=== PATIENT | male | born 1960 | race American Indian/Alaskan Native ===

== ENCOUNTER 2019-05-27 21:07 | Emergency (ER) | payer BC ==
--- NOTE | 2019-05-27 21:21 | Emergency Department Report ---
Blank Doc - Documentation Documentation: This is a 59-year-old male that presents with lower back pain. Stated felt a popping sensation This initial assessment/diagnostic orders/clinical plan/treatment(s) is/are subject to change based on patient's health status, clinical progression and re- assessment by fellow clinical providers in the ED. Further treatment and workup at subsequent clinical providers discretion. Patient/guardians urged not to elope from the ED as their condition may be serious if not clinically assessed and managed. Initial orders include: 1- Patient sent to [facility] for further evaluation and treatment 2- xray
[2019-05-27 21:23] VITALS: BP 135/92
--- NOTE | 2019-05-27 22:17 | XRay Report ---
LUMBAR SPINE 3 VIEWS. INDICATION / CLINICAL INFORMATION: low back pain COMPARISON: None available. FINDINGS: BONES / JOINT(S): No acute fracture or subluxation. Mild degenerative disc disease is scattered diffu sely. SOFT TISSUES: No significant abnormality. ADDITIONAL FINDINGS: None. Signer Name: Ryan Garcia MD Signed: 05/27/2019 10:12 PM Workstation Name: [id number]
[2019-05-27] MEDS ORDERED: PERCOCET 5/325 PO STA (22:34)
--- NOTE | 2019-05-27 23:01 | Emergency Department Report ---
ED Back Pain/Injury HPI - General Chief Complaint: Back Pain/Injury Stated Complaint: BACK PAIN Time Seen by Provider: 05/27/19 21:19 Source: patient Limitations: No Limitations - History of Present Illness Initial Comments: 59-year-old obese -[place] male was doing an excessive amount of yardwork, which is out of character for his usual workday about 2-3 days ago. Stated he began having some soreness to the right aspect of the back which has progressively worsening since the onset, now is aggravating him to the point where he attempted to go to the chiropractor earlier today but had no reduction in his discomfort. Pain is dull, throbbing and worse with various position, and range of motion. No numbness, tingling, no shortness of breath, coughing, dysuria, abdominal pain that diarrhea or constipation. MD Complaint: back pain -: days(s) Similar Symptoms Previously: No Place: home Quality: dull, aching Consistency: constant Worsens With: movement Context: turning/twisting Associated Symptoms: denies: cough, fever/chills, constipation, abdominal pain, malaise, seizure, shortness of breath, syncope - Related Data Previous Rx's Medication Instructions Recorded Last Taken Type Ketorolac [Toradol] 10 mg PO Q6H PRN #15 tablet 05/27/19 Unknown Rx methOCARBAMOL [Robaxin] 750 mg PO Q8H PRN #21 tablet 05/27/19 Unknown Rx Allergies Allergy/AdvReac Type Severity Reaction Status Date / Time No Known Allergies Allergy Unverified 05/27/19 21:12 ED Review of Systems ROS: Stated complaint: BACK PAIN Other details as noted in HPI Comment: All other systems reviewed and negative ED Past Medical Hx - Past Medical History Previous Medical History?: Yes Hx Hypertension: Yes (compliant w/meds, "BP never high") Additional medical history: hyperlipidemia. glaucoma - Surgical History Past Surgical History?: No - Social History Smoking Status: Never Smoker Substance Use Type: None - Medications Home Medications: Home Medications Medication Instructions Recorded Confirmed Last Taken Type Ketorolac [Toradol] 10 mg PO Q6H PRN #15 tablet 05/27/19 Unknown Rx methOCARBAMOL [Robaxin] 750 mg PO Q8H PRN #21 tablet 05/27/19 Unknown Rx ED Physical Exam - General Limitations: No Limitations General appearance: alert, in no apparent distress - Head Head exam: Present: atraumatic, normocephalic - Eye Eye exam: Present: normal appearance - ENT ENT exam: Present: mucous membranes moist - Neck Neck exam: Present: normal inspection - Respiratory Respiratory exam: Present: normal lung sounds bilaterally. Absent: respiratory distress - Cardiovascular Cardiovascular Exam: Present: regular rate, normal rhythm. Absent: systolic murmur, diastolic murmur, rubs, gallop - GI/Abdominal GI/Abdominal exam: Present: soft, normal bowel sounds - Rectal Rectal exam: Present: deferred - Extremities Exam Extremities exam: Present: normal inspection - Back Exam Back exam: Present: normal inspection, muscle spasm, paraspinal tenderness. A bsent: CVA tenderness (R), CVA tenderness (L) - Expanded Back Exam Expanded Back exam: Absent: saddle anesthesia 1 - Pain with right lateral flexion and forward flexion of the spine. Full range of motion is noted. No tenderness to the sacrum or coccyx.No tenderness over the piriformis muscles. No CVA tenderness - Neurological Exam Neurological exam: Present: alert, oriented X3, CN II-XII intact, normal gait - Psychiatric Psychiatric exam: Present: normal affect, normal mood - Skin Skin exam: Present: warm, dry, intact, normal color. Absent: rash ED Course Vital Signs 05/27/19 21:20 Temperature 98.2 F Pulse Rate 71 Respiratory 18 Rate Blood Pressure 135/92 O2 Sat by Pulse 95 Oximetry ED Medical Decision Making - Radiology Data Radiology results: report reviewed (no fracture or subluxation. No significant abnormalities per radiologist's report), image reviewed - Medical Decision Making 59-year-old Lebanese male status post doing excessive amount of yard work with back pain which be from a [place] skeletal origin primarily muscular region. Does have some evidence of strain/spasm. Anginal overuse. Advised him on utiliza tion of ice and no evidence of any renal pathology no gastrointestinal compromise. Critical care attestation.: If time is entered above; I have spent that time in minutes in the direct care of this critically ill patient, excluding procedure time. ED Disposition Clinical Impression: Back strain Disposition: DC-01 TO HOME OR SELFCARE Is pt being admited?: No Does the pt Need Aspirin: No Condition: Stable Instructions: Muscle Strain (ED) Referrals: MARKOS MIRANDA MD [Primary Care Provider] - 3-5 Days [facility] [Provider Group] - 3-5 Days FLAQUITA PERDOMO MD [Staff Physician] - 3-5 Days
== END 2019-05-27 23:36 | disposition home or self-care (01) ==
LOC: ED 21:07
DX: S29.012A Strain of muscle and tendon of back wall of thorax, initial encounter (principal); I10 Essential (primary) hypertension; E78.5 Hyperlipidemia, unspecified; Z79.899 Other long term (current) drug therapy; X50.9XXA Other and unspecified overexertion or strenuous movements or postures, initial encounter; Y93.89 Activity, other specified; Y92.89 Other specified places as the place of occurrence of the external cause; Y99.8 Other external cause status
CPT/HCPCS: 72100